=== PATIENT | female | born 1965 | race Caucasian/White ===

== ENCOUNTER → 2017-07-09 | Day surgery (SDC) | payer BC ==
[~2017-07-09] MED LIST: ALLEGRA PO; BUPIVACAINE HCL 0.5% 10ML MPF VIAL INJ ONE; CEFAZOLIN SOD 1 GM VIAL ONE; FENTANYL CITRATE/PF 100MCG/2 ML INJ ONE; FISH OIL 500 M1 EAC1 PO; LIDOCAINE HCL 1% LOCAL INJ 20 ML VIAL ONE; LIDOCAINE HCL 2% LOCAL INJ 5 ML SDV VIAL INJ ONE; MIDAZOLAM HCL 2 MG/2 ML VIAL ONE; MOBIC15 MG PO; MULTIVITAMINS1 EAC7 PO; MUPIROCIN 2% OINT 22 GM TUBE ONE; NASONEX17 GM; NEXIUM40 MG PO; PROPOFOL IV EMULSION 10 MG/ML 20 ML VIAL ONE; SIMVASTATIN20 MG PO
--- NOTE | 2017-07-09 11:22 | Operative Report ---
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 POSTOPERATIVE DIAGNOSES 1. Cyst right index finger distal interphalangeal joint. 2. Osteophyte right index finger distal interphalangeal joint. PROCEDURES 1. Excision of cyst right index finger distal interphalangeal joint. 2. Arthrotomy with excision of osteophyte right index finger distal interphalangeal joint. ANESTHESIA: MAC/local. HISTORY: The patient is a 52-year-old right hand dominant female with aforementioned diagnoses. She has grooving of the nail plate indicative of longstanding presence of a cystic mass at the base of the germinal matrix. Risk, benefits, and alternative treatments were discussed with the patient and she is prepared to undergo the procedures outlined. DETAILS OF PROCEDURE: Patient was marked preoperatively in the holding area. She was brought to the operating theater. After the induction of adequate IV sedation, she was prepped and draped in a supine position. A time out was performed. A digital block comprising of 50:50 mixture of 1% Xylocaine with 0.5% plain Marcaine is used to encircle the base of the index finger, a total of 3 mL is used. At this point, a tourniquet was placed around the base of the index finger. A curvilinear incision was marked out around the radial side of the index finger DIP joint. The incision was made through the skin and subcutaneous tissue. Venous tributaries were controlled with the bipolar cautery. The cyst was immediately identified sitting just proximal to the germinal matrix. The cyst was then traced down to the radial side of the DIP joint where the cyst is removed with its communicating stalk. There is an osteophyte present and using a small rongeur, the osteophyte is removed and smoothed down. The wound is irrigated with bacteriostatic saline and the area around the joint defect is fulgurated using the bipolar cautery. The skin was closed with 5-0 nylon in an interrupted fashion. Bactroban ointment, a Xeroform, and a sterile dressing were applied. The tourniquet was removed. The finger pinked up nicely and the patient returned to recovery room in satisfactory condition and discharged with a postoperative instruction sheet as well as a followup appointment. Job#: [id number] ITA
== END | disposition home or self-care (01) ==
LOC: OR 05:33
PROVIDERS: ATTEND Plastic Surgery
DX: M67.441 Ganglion, right hand (principal); M19.041 Primary osteoarthritis, right hand; M54.9 Dorsalgia, unspecified; K21.9 Gastro-esophageal reflux disease without esophagitis; N39.0 Urinary tract infection, site not specified; R06.83 Snoring; E78.5 Hyperlipidemia, unspecified; F17.210 Nicotine dependence, cigarettes, uncomplicated; Z01.810 Encounter for preprocedural cardiovascular examination
CPT/HCPCS: 26160; 93005; J0690; J2001 ×2; J2250